=== PATIENT | female | born 1990 | race Two or more races ===

== ENCOUNTER 2024-06-08 10:16 | Outpatient (CLI) | payer OTHER | END 2024-06-08 10:29 | disposition home or self-care (01) | LOC: RX STUDY 10:16 | DX: N94.6 Dysmenorrhea, unspecified (principal); E28.8 Other ovarian dysfunction ==

== ENCOUNTER → 2025-04-05 | Day surgery (SDC) | payer OTHER ==
[~2025-04-05] VITALS: Ht 162.6 cm; Wt 60.3 kg
[~2025-04-05] MED LIST: CYTOTEC100 MCG PO; KETOROLAC TROMETHAMINE 30 MG VIAL IV STA; RINGERS SOLUTION,LACTATED 1,000 ML IV ONE
[2025-04-05 07:12] LABS: BASO % 0.3 % (0.1-1.2); EOS % 0.8 % (0.7-7.0); HEMATOCRIT 36.9 % (34.1-44.9); HEMOGLOBIN 13.2 g/dL (11.2-15.7); LYMPH # 1.76 (1.18-3.74); MEAN CORPUSCULAR HEMOGLOBIN 31.7 pg (25.6-32.2); MONO # 0.62 (0.24-0.82); MONO % 4.9 % (4.7-12.5); NEUT # 9.96 (1.56-6.13); NEUT % 79.6 % (34.0-71.1); PLATELET COUNT 227 K/uL (163-369); RED BLOOD COUNT 4.16 M/uL (3.93-5.22); RED CELL DISTRIBUTION WIDTH 12.3 % (11.6-14.4)
[2025-04-05 07:25] LABS: INR 0.94; PARTIAL THROMBOPLASTIN TIME 25.7 SECONDS (22.0-34.0); PROTHROMBIN TIME 10.3 SECONDS (9.0-11.5)
[2025-04-05 08:04] LABS: CALCIUM 8.3 mg/dL (8.5-10.1); CREATININE SERUM 0.54 mg/dL (0.55-1.02); GFR 127.74; POTASSIUM 3.87 mEq/L (3.5-5.1)
== END | disposition home or self-care (01) ==
LOC: ER 05:25 → CIR.AMB 15:00
PROVIDERS: General Practice; ATTEND Obstetrics & Gynecology
DX: O03.4 Incomplete spontaneous abortion without complication (principal)